=== PATIENT | male | born 1950 | race Caucasian/White ===

== ENCOUNTER 2019-10-19 13:45 | Outpatient (CLI) | payer MEDICARE, OTHER, SELFPAY ==
[2019-10-19 14:58] LABS: Basophils Percent Auto 0.4 % (0.2-1.2); Eosinophils Absolute Auto 0.2 K/mm3 (0-0.3); Eosinophils Percent Auto 1.7 % (0-4.4); Hematocrit 42.2 % (42.0-52.0); Hemoglobin 13.7 g/dL (14.0-18.0); Immature Granulocyte Absolute 0.08 K/mm3 (0.00-0.031); Immature Granulocyte Percent A 0.9 % (0-0.5); Lymphocytes Absolute Auto 1.03 K/mm3 (0.9-3.2); Lymphocytes Percent Auto 11.4 % (18.3-44.2); Mean Corpuscular HGB Conc 32.5 g/dl (32-36); Mean Corpuscular Hemoglobin 32.5 pg (26-34); Mean Corpuscular Volume 100.2 fl (80-100); Mean Platelet Volume 8.9 fl (7.4-10.4); Monocytes Absolute Auto 0.8 K/mm3 (0.1-0.6); Monocytes Percent Auto 8.9 % (2.6-8.5); Neutrophils Absolute Auto 6.9 K/mm3 (1.3-6.7); Neutrophils Percent Auto 76.7 % (45.5-73.1); Platelet Count Result 271 k/mm3 (150-375); Red Blood Count 4.21 M/mm3 (4.6-6.20); Red Cell Distribution Width 14.1 % (11.5-14.5)
[2019-10-19 15:10] LABS: Albumin Level 4.1 g/dL (3.5-5.1); Estimated Glomerular Filt Rate > 60; Glucose 105 mg/dL (75-110)
[2019-10-19 15:41] LABS: Urine Cotinine NEGATIVE
[2019-10-19 16:09] LABS: Hemoglobin A1C 4.7 % (<5.7)
== END 2019-10-19 13:46 | disposition home or self-care (01) ==
LOC: ANHSURGERY 13:50
PROVIDERS: PCP Family Medicine; Visit Provider Orthopaedic Surgery
DX: Z01.818 Encounter for other preprocedural examination (principal); M17.11 Unilateral primary osteoarthritis, right knee
CPT/HCPCS: 36415; 80307; 82040; 82565; 82947; 83036; 85025; 87081

== ENCOUNTER 2019-12-16 08:50 | Outpatient (CLI) | payer MEDICARE, OTHER, SELFPAY ==
[2019-12-16 09:20] LABS: Basophils Percent Auto 0.4 % (0.2-1.2); Eosinophils Absolute Auto 0.1 K/mm3 (0-0.3); Eosinophils Percent Auto 1.8 % (0-4.4); Hematocrit 37.9 % (42.0-52.0); Hemoglobin 12.1 g/dL (14.0-18.0); Immature Granulocyte Absolute 0.03 K/mm3 (0.00-0.031); Immature Granulocyte Percent A 0.5 % (0-0.5); Lymphocytes Absolute Auto 0.97 K/mm3 (0.9-3.2); Lymphocytes Percent Auto 17.8 % (18.3-44.2); Mean Corpuscular HGB Conc 31.9 g/dl (32-36); Mean Corpuscular Hemoglobin 31.1 pg (26-34); Mean Corpuscular Volume 97.4 fl (80-100); Mean Platelet Volume 9.1 fl (7.4-10.4); Monocytes Absolute Auto 0.7 K/mm3 (0.1-0.6); Monocytes Percent Auto 12.1 % (2.6-8.5); Neutrophils Absolute Auto 3.7 K/mm3 (1.3-6.7); Neutrophils Percent Auto 67.4 % (45.5-73.1); Platelet Count Result 241 k/mm3 (150-375); Red Blood Count 3.89 M/mm3 (4.6-6.20); Red Cell Distribution Width 15.5 % (11.5-14.5); White Blood Count 5.5 K/mm3 (4.5-10.0)
[2019-12-16 09:31] LABS: Hemoglobin A1C 4.7 % (<5.7); Urine Cotinine NEGATIVE
== END 2019-12-16 08:51 | disposition home or self-care (01) ==
LOC: ANHSURGERY 08:53
PROVIDERS: PCP Family Medicine; Visit Provider Orthopaedic Surgery
DX: M17.12 Unilateral primary osteoarthritis, left knee (principal)
CPT/HCPCS: 36415; 80307; 82040; 83036; 85025; 86850; 86900; 86901; 87081

== ENCOUNTER 2019-12-27 00:07 | Day surgery (SDC) | payer MEDICARE, OTHER, SELFPAY ==
[2019-12-08 13:03] VITALS: BMI 27.1
--- NOTE | 2019-12-08 13:29 | PC.NURSE ---
PT STATES NO CHANGE IN HEALTH HISTORY
[2019-12-27] VITALS (12 sets, daily range): BP systolic 126–160; BP diastolic 67–86; PULSE 73–99; RESP 13–18; TEMP 36.3–36.8; O2SAT 94–100; BMI 27.1; BMI 28.1
--- NOTE | ~2019-12-27 | XR_ITS ---
EXAMINATION: XR knee LT 2V DATE: 12/27/2019 09:47 INDICATION: Postoperative evaluation following left knee arthroplasty. TECHNIQUE: Anteroposterior and lateral views of the left knee were obtained. COMPARISON: None. FINDINGS: Left total knee arthroplasty with patellar resurfacing appears well seated and in near anatomic align ment. No fractures identified. Expected postoperative subcutaneous and intra-articular gas. IMPRESSION: 1. Left total knee arthroplasty, negative for postoperative purposes. Reviewed, dictated and finalized at location A. [employer]
--- NOTE | 2019-12-27 06:51 | WPDANESEPPF ---
Anes - Initial Pre Proc Eval Procedure: Operation Date: 12/27/19 07:30 Proposed Procedures p Left Total Knee Arthroplasty - Wayne Linda MD Date/Time: 12/27/19 06:51 Surgeon: Wayne Linda MD Pre Op Diagnosis: OA Right Knee Patient Data Age: 69 Gender: M Height: 6 ft Weight: 90.75 kg Allergies Allergy/AdvReac Type Severity Reaction Status Date / Time No Known Allergies Allergy Verified 12/08/19 13:08 Home Medications Medication Instructions Recorded Confirmed Type ascorbic acid (vitamin C) [Vitamin 500 mg PO Q12H 10/19/19 12/08/19 History C] coenzyme Q10 [Co Q-10] 100 mg PO DAILY 10/19/19 12/08/19 History dorzolamide-timolol 1 drp OPHTHALMIC (EYE) BID 10/19/19 12/08/19 History folic acid 1 mg PO DAILY 10/19/19 12/08/19 History lutein 10 mg PO DAILY 10/19/19 12/08/19 History multivitamin 1 cap PO DAILY 10/19/19 12/08/19 History timolol maleate (PF) 1 drp OPHTHALMIC (EYE) DAILY 10/19/19 12/08/19 History sulfasalazine 1,500 mg PO BID 11/15/19 12/08/19 History oxycodone-acetaminophen 1 - 2 tablet PO Q4H PRN #40 tablet 11/16/19 12/08/19 Rx MDD 8 tablets celecoxib [Celebrex] 200 mg PO DAILY 12/08/19 12/08/19 History leflunomide 20 mg PO DAILY 12/08/19 12/08/19 History Patient hx anesthesia problems: none Family hx anesthesia problems: none PMFSH Past Medical History Medical History Aftercare following surgery (11/15/19) Glaucoma History of melanoma KWAKU (obstructive sleep apnea) Osteoarthritis of left knee Osteoarthritis of right knee Rheumatoid arthritis Rheumatoid arthritis of knee Surgical History Surgical History History of arthroscopy of both knees History of detached retina repair (~1979) History of finger joint replacement (~2011) History of melanoma excision (~2015) Presence of right artificial knee joint (11/15/19) Family History Family History Other Family history of ulcerative colitis Social History Social History Social History: 1-2 beers day Smoking status: Current some day smoker Tobacco type: pipe and cigars Alcohol intake: current Drinks per week: 10 Substance use: never Spiritual care concerns: No Agree to blood products: Yes Anes - Eval Final PreProcedure Day of Procedure 12/27/19 06:51 Patient weight: overweight Heart: regular rate and rhythm Lungs: clear to auscultation Airway: Mallampati scale class 1 Neurological: alert and oriented Last oral intake: >/= 8 hours ASA classification: II Emergent: no Anesthetic plan: proceed Anesthesia type and monitoring: general LMA and standard monitoring Informed Consent: The patient's anesthetic plan and its attendant risks and benefits were discussed with the patient/family/POA. Questions were solicited and answers provided to the satisfaction of the patient/family/POA.
--- NOTE | 2019-12-27 07:11 | WPDHPUPDATE1 ---
History and Physical Update Update Date/Time: 12/27/19 07:11 History and Physical has been reviewed, including an updated exam of the patient. There are NO changes in the patient's condition. Risks, benefits, and alternatives have been discussed and questions answered. Patient agrees to proceed with procedure.
[2019-12-27] MEDS: LACTATED RINGERS 1,000 ML 30 ML IV CONT ×2 (07:15→09:31)
--- NOTE | 2019-12-27 07:27 | WPDANESPNB ---
Anes - Peripheral Nerve Block Date/Time: 12/27/19 07:27 I have discussed with the patient/family/POA the placement of a peripheral nerve block for post-operative pain management, including associated risks, benefits, complications, and side effects. Alternative methods of post-operative analgesia were detailed. Questions were solicited and answers provided to the satisfaction of the patient/family/POA. Time-Out: A pre-procedural Time-Out was completed immediately before starting the procedure and confirmed: Patient Identification, Site, Procedure, Patient Position and the Availability of Requisite Equipment. Clinical Indications: Acute post-operative pain management requested by the operative surgeon. Nerve Block Insertion Note Anes-nerve block: adductor canal left Patient position: supine Skin prep: chlorhexidine Needle: 22 gauge, stimulating, insulated echogenic needle. Needle length: 80 mm Technique: ultrasound Injectate: bupivacaine 0.5% with epi 5 mcg/ml (30ml) and dexamethasone (mg) (4mg) Observations: tolerated well Complications: none Procedure start time:: 714 Procedure end time:: 720
[2019-12-27] MEDS: ceFAZolin 2 GM/D5W 50 ML 2 GM/50 ML BAG IVPB (07:28)
[2019-12-27] MEDS: GENTAMICIN BONE CEMENT REFOBACIN 1 EACH TOPICAL (08:33)
--- NOTE | 2019-12-27 09:48 | PM.PROC ---
Procedure Note - Detailed Date of procedure: 12/27/19 Pre-op diagnosis: OA Right Knee Post-op diagnosis: same Procedure performed: Total knee arthroplasty, right Implants: [employer] Triathlon size 5 press-fit femur, size 6 cemented low-profile tibia, 11mm posterior stabilized polyethylene insert, 35mm asymmetric metal backed patellar component. Anesthesia: GETA and regional (subsartorial nerve block) Surgeon: Wayne Linda MD Estimated blood loss (mL): 100 Drains: No Complications: None Condition: stable Disposition: PACU Findings: Extensive synovitis, consistent with rheumatoid arthritis. Similar observation to the contralateral knee. Partial synovectomy performed. Bone quality good. Standard bony resection. OPERATIVE DETAILS: The patient was given a nerve block preoperatively, and then brought to the operating room. A general anesthetic was administered. The leg was prepped and draped in the usual sterile fashion. The limb was elevated and the tourniquet inflated to 300 mmHg during initial exposure, and cementation. A longitudinal incision was created along the medial border of the patella and patellar tendon, and a minimally invasive optimized mid-vastus approach to the knee was performed. A large medial release was taken. The knee was then flexed. The osteophytes were carefully removed. The intramedullary guide was placed in the femoral canal. The distal femoral resection was then taken with the oscillating saw. The collateral ligaments were carefully protected. The tibia was carefully exposed. The jig was applied, and the proximal tibia was resected according to preoperative plan. The knee was balanced in extension. Appropriate releases were taken where needed. The anterior and posterior cruciate ligaments and meniscal remnants were removed. The patella was measured. Patellar resection was carried out with the oscillating saw. The lug holes drilled. The femur was sized and rotation assessed using a combination of gap balancing, posterior referencing, and the AP axis. The 4 in 1 cutting block was used to finish the femoral cuts after equal gaps were assured. The box cut was taken. The lug holes were drilled. The osteophytes were carefully removed from the back of the knee. The knee was copiously irrigated with antibiotic solution periodically throughout the procedure. The spacer block was used to confirm equal flexion and extension gaps. Slight needle release of the MCL was performed. The tibia was sized and broached. The bony surfaces were prepared for cementing with pulsatile lavage. The real tibial component was cemented into position followed by press fitting the femoral component. Excess cement was carefully removed. The patella component was press-fit. Patellar tracking was carefully assessed. No additional releases were required. The wound was closed with #1 Vycril suture, #2 Quill suture, 0-Quill suture, and 2-0 Quill suture followed by Steri-Strips. A sterile bulky dressing was applied. Meticulous hemostasis was maintained throughout the procedure. The [email or web address] device was used. There were no complications. The patient was extubated and brought to the recovery room in stable condition after the application of sterile dressing with Jovan bandage.
--- NOTE | 2019-12-27 10:03 | SUR.PHASEI ---
1003 - family updated and sent to floor
[2019-12-27] MEDS: HYDROMORPHONE HCL 1 MG/ML INJ 0.5 MG IV PUSH (10:19)
--- NOTE | 2019-12-27 11:16 | ADMGEN ---
This patient, Reuben Gillespie, was admitted to 3 [facility] Room 327-01 at 1045. Patient/family oriented to hospital policies and general routines including ID bracelet, bed and alarms, visiting hours, pain management, procedures, bathroom and other care routines, personal items, smoking policy, room service/diet, and visiting hours. Valuables list has been completed. Information on how to activate the Rapid Response Team has been discussed. Patient/Family are encouraged to report perceived risks to care and to ask questions if they do not understand what they are told or what they should do.
[2019-12-27] MEDS: DOCUSATE SODIUM 100 MG CAPSULE PO (17:37)
[2019-12-27] MEDS: ASCORBIC ACID 500 MG TABLET PO (17:38)
[2019-12-27] MEDS: FOLIC ACID 1 MG TABLET PO (17:38)
[2019-12-27] MEDS: MULTIVITAMINS THERAPEUTIC TAB (*BKC) 1 TABLET PO (17:38)
[2019-12-27] MEDS: SULFASALAZINE 500 MG TABLET 1500 MG PO (17:39)
[2019-12-27] MEDS: CELECOXIB 200 MG CAPSULE PO (17:39)
[2019-12-27] MEDS: DORZOLAMIDE/TIMOLOL OPHTH SOL 10 ML BOTTLE 1 DROP LEFT EYE (17:41)
[2019-12-27] MEDS: ACETAMINOPHEN 500 MG TABLET 1000 MG PO ×2 (17:47→23:24)
[2019-12-27] MEDS: FAMOTIDINE 20 MG TABLET PO (20:17)
[2019-12-28 02:00] VITALS: BP 120/60; PULSE 89; RESP 18; TEMP 36.7; O2SAT 97
[2019-12-28] MEDS: ACETAMINOPHEN 500 MG TABLET 1000 MG PO (05:27)
[2019-12-28 05:57] VITALS: BP 127/61; PULSE 89; RESP 18; TEMP 36.6; O2SAT 98
[2019-12-28 06:04] LABS: Basophils Percent Auto 0.1 % (0.2-1.2); Eosinophils Percent Auto 0.2 % (0-4.4); Hematocrit 30.2 % (42.0-52.0); Hemoglobin 9.7 g/dL (14.0-18.0); Immature Granulocyte Absolute 0.04 K/mm3 (0.00-0.031); Immature Granulocyte Percent A 0.5 % (0-0.5); Lymphocytes Absolute Auto 1.23 K/mm3 (0.9-3.2); Lymphocytes Percent Auto 14.4 % (18.3-44.2); Mean Corpuscular HGB Conc 32.1 g/dl (32-36); Mean Corpuscular Volume 93.5 fl (80-100); Monocytes Absolute Auto 1.1 K/mm3 (0.1-0.6); Monocytes Percent Auto 12.6 % (2.6-8.5); Neutrophils Absolute Auto 6.2 K/mm3 (1.3-6.7); Neutrophils Percent Auto 72.2 % (45.5-73.1); Platelet Count Result 214 k/mm3 (150-375); Red Blood Count 3.23 M/mm3 (4.6-6.20); Red Cell Distribution Width 15.1 % (11.5-14.5); White Blood Count 8.5 K/mm3 (4.5-10.0)
[2019-12-28 06:09] LABS: Blood Urea Nitrogen 16 mg/dL (9-20); Calcium 8.7 mg/dL (8.4-10.2); Carbon Dioxide 28 mmol/L (22-30); Chloride 104 mmol/L (98-107); Estimated CRCL calculation 77 ml/min; Estimated Glomerular Filt Rate > 60; Glucose 111 mg/dL (75-110); Potassium 4.2 mmol/L (3.4-5.0); Sodium 139 mmol/L (137-145)
--- NOTE | 2019-12-28 07:44 | WPDANESPN ---
Anes - Prog Note Post-Op Date/Time: 12/28/19 07:44 Cardiovascular status: normal Respiratory status: normal Airway patency: baseline Mental status: baseline Vital Signs: Last Vital Signs Temp 36.6 C 12/28/19 05:57 Pulse 89 12/28/19 05:57 Resp 18 12/28/19 05:57 BP 127/61 12/28/19 05:57 Pulse Ox 98 12/28/19 05:57 I/O: Intake & Output 12/27/19 12/27/19 12/28/19 15:59 23:59 07:59 Intake Total 490 620 770 Output Total 950 1300 Balance 490 330 -755 Laboratory Tests 12/28/19 05:32 12/28/19 05:32 12/28/19 12/28/19 05:32 05:32 WBC 8.5 RBC 3.23 L Hgb 9.7 L Hct 30.2 L MCV 93.5 MCH 30.0 MCHC 32.1 RDW 15.1 H Plt Count 214 MPV 9.0 Immature Gran % (Auto) 0.5 Neut % (Auto) 72.2 Lymph % (Auto) 14.4 L Whitman % (Auto) 12.6 H Eos % (Auto) 0.2 Baso % (Auto) 0.1 L Lymph # (Auto) 1.23 Whitman # (Auto) 1.1 H Eos # (Auto) 0.0 Baso # (Auto) 0.0 Abs Immat Gran (auto) 0.04 H Absolute Neuts (auto) 6.2 Absolute Nucleated RBC 0.0 Nucleated RBC % 0.0 Sodium 139 Potassium 4.2 Chloride 104 Carbon Dioxide 28 BUN 16 Creatinine 0.90 Estim Creat Clear Calc 77 Estimated GFR > 60 Glucose 111 H Calcium 8.7 Post-procedural complaints: none Patient Feedback: Patient satisfied with anesthetic care.
[2019-12-28] MEDS: ASCORBIC ACID 500 MG TABLET PO (08:55)
[2019-12-28] MEDS: FAMOTIDINE 20 MG TABLET PO (08:55)
[2019-12-28] MEDS: SULFASALAZINE 500 MG TABLET 1500 MG PO (08:55)
[2019-12-28] MEDS: FOLIC ACID 1 MG TABLET PO (08:56)
[2019-12-28] MEDS: MULTIVITAMINS THERAPEUTIC TAB (*BKC) 1 TABLET PO (08:56)
[2019-12-28] MEDS: DOCUSATE SODIUM 100 MG CAPSULE PO (08:56)
--- NOTE | 2019-12-28 16:30 | PM.DS ---
DS: Diagnosis Admitting Diagnosis Admitting Diagnosis: Unilateral primary osteoarthritis, left knee Discharge Diagnosis (1) Rheumatoid arthritis of knee: Code(s): M06.9 - Rheumatoid arthritis, unspecified Status: Acute DS: Summary Hospital Course Reason for hospitalization: Total knee arthroplasty. Hospital Course: Tolerated surgery well. Progressed appropriately with therapy. Status at Discharge Functional status at discharge: uses cane/walker Time Spent with Patient Time attestation: Total time spent providing and/or coordinating discharge services: Exam Const: General: no acute distress Resp: Effort & Inspection: normal respiratory effort Skin: Other: Wound healing well. Mepilex dressing intact. No hematoma or drainage. Neuro: Motor exam (neuro): 5/5 motor strength present throughout Sensory Exam: normal sensation Psych: Mental Status: mental status grossly normal Speech and movement: Normal speech and movement present DS: Data Data Completed and Pending Labs on day of discharge: Labs from last 24 hours 12/28/19 12/28/19 05:32 05:32 WBC 8.5 RBC 3.23 L Hgb 9.7 L Hct 30.2 L MCV 93.5 MCH 30.0 MCHC 32.1 RDW 15.1 H Plt Count 214 MPV 9.0 Immature Gran % (Auto) 0.5 Neut % (Auto) 72.2 Lymph % (Auto) 14.4 L Griggs % (Auto) 12.6 H Eos % (Auto) 0.2 Baso % (Auto) 0.1 L Lymph # (Auto) 1.23 Griggs # (Auto) 1.1 H Eos # (Auto) 0.0 Baso # (Auto) 0.0 Abs Immat Gran (auto) 0.04 H Absolute Neuts (auto) 6.2 Absolute Nucleated RBC 0.0 Nucleated RBC % 0.0 Sodium 139 Potassium 4.2 Chloride 104 Carbon Dioxide 28 BUN 16 Creatinine 0.90 Estim Creat Clear Calc 77 Estimated GFR > 60 Glucose 111 H Calcium 8.7 Discharge Plan Discharge Patient Disposition: Home, Self-Care Discharge Instructions: See instruction sheet. Patient Instructions: Pain Management (DC), Knee Replacement (DC) Stand Alone Forms: General Discharge Information Follow-up/Referrals: Wayne Linda MD [Physician] - Discharge Orders: Discharge Order (Routine); Ordered 12/28/19 Ordered By: Wayne Linda Discharge Medications: Continued celecoxib [Celebrex] 200 mg Capsule 200 mg PO BID RF: 0 leflunomide 20 mg Tablet 20 mg PO DAILY RF: 0 ascorbic acid (vitamin C) [Vitamin C] 500 mg Capsule, Extended Release 500 mg PO Q12H RF: 0 folic acid 1 mg Tablet 1 mg PO DAILY RF: 0 dorzolamide-timolol 22.3-6.8 mg/mL Drops 1 drp OPHTHALMIC (EYE) BID RF: 0 multivitamin Capsule 1 cap PO DAILY RF: 0 coenzyme Q10 [Co Q-10] 100 mg Capsule 100 mg PO DAILY RF: 0 timolol maleate (PF) 0.5 % Dropperette 1 drp OPHTHALMIC (EYE) DAILY RF: 0 lutein 10 mg Tablet 10 mg PO DAILY RF: 0 sulfasalazine 500 mg tablet,delayed release (DR/EC) 1,500 mg PO BID RF: 0 oxycodone-acetaminophen 5-325 mg tablet 1 - 2 tablet PO Q4H MDD 8 tablets PRN (Reason: pain) Qty: 40 RF: 0 Discharge Date/Time: 12/28/19 09:30 Quality VTE Prophylaxis VTE prophylaxis: mechanical ordered (BHARTI fernandes and Emily)
== END 2019-12-28 09:30 | disposition home or self-care (01) ==
LOC: ANHSURGERY 06:12 → ANH3MEDSUR 16:21
PROVIDERS: PCP Family Medicine; Visit Provider Orthopaedic Surgery
PROC: (CPT 27447; principal; 2019-12-27 07:30)
DX: M17.12 Unilateral primary osteoarthritis, left knee (principal); M06.862 Other specified rheumatoid arthritis, left knee; M65.862 Other synovitis and tenosynovitis, left lower leg; G89.18 Other acute postprocedural pain; G47.33 Obstructive sleep apnea (adult) (pediatric); H40.9 Unspecified glaucoma; Z72.0 Tobacco use; Z96.651 Presence of right artificial knee joint
CPT/HCPCS: 27447; 64447; 36415; 73560; 80048; 85025; 97110; 97116; 97161; 97165; A9270; C1713; C1776; J0131; J0171; J0330; J0690; J1100; J1170; J1885; J2250; J2270; J2405; J2704; J2795; J3010; J7120

== ENCOUNTER 2022-05-27 08:19 | Outpatient (CLI) | payer MEDICARE, OTHER, SELFPAY | END 2022-05-27 08:20 | disposition home or self-care (01) | PROVIDERS: PCP Family Medicine; Visit Provider Specialist | DX: L73.9 Follicular disorder, unspecified (principal) | CPT/HCPCS: 87070; 87147; 87186; 87205 ==

== ENCOUNTER 2024-05-17 09:01 | Outpatient (RCR) | payer MEDICARE, SELFPAY ==
--- NOTE | 2024-05-17 10:14 | OPREHPOC ---
Outpatient Therapy Plan of Care This is a Multidisciplinary Plan of Care that may contain components documented by all disciplines (PT, OT, and ST.) PT Problem 1 PT Problem #1 Knowledge Deficit PT Goal 1 Goal The patient will be independent in a home exercise program. Target Visit 2 PT Problem 2 PT Problem #2 Pain PT Goal 1 Goal The patient will report no greater than 2/10 low back pain with ADL performance. Target Visit 8 PT Problem 3 PT Problem #3 Impaired Range of Motion PT Goal 1 Goal The patient will improve lumbar AROM by 5 degrees in all planes to improve ROM for ADLs and golfing. Target Visit 8 PT Problem 4 PT Problem #4 Impaired Strength PT Goal 1 Goal The patient will demonstrate 4/5 strength in the lower abdominals, lumbar extensors, and hip abductors to support the spine and hip. Target Visit 8 PT Problem 5 PT Problem #5 Impaired Functional Mobil PT Goal 1 Goal The patient will demonstrate less than 10% self perceived disability per the Back Index. Target Visit 8
--- NOTE | 2024-05-17 10:14 | PTOPEVAL1 ---
Assessment and note entered by Chantelle Mauro, PT Evaluation Information Assessment Status Evaluation Diagnosis Lumbar Spondylosis Other ICD-10 Condition Codes ( M47.816 PT) Onset 04/26/24 Subjective Information Reuben Gillespie reports he thinks he pinched a nerve in his back. He reports pain started about 2 months ago when he bent over after mowing on a riding mower and his back locked up. He is having pain in the lower back to both buttock and back of the thigh. He also has RA causing general pain. He notes he has difficulty with playing golf and performing daily tasks. He had x-rays on his hips and lumbar spine that showed mild degenerative changes in his hips and lumbar spondylosis and spondylolithesis. Reported Pain Level Pain Score 0: Self Report Assessment PT Clinical Summary Reuben Gillespie presents with low back pain with referral to bilateral buttock and posterior thigh. Symptoms started about 2 months ago when he bent over and felt his back lock up. He is noting difficulty with daily tasks and playing golf due to the pain. He objectively demonstrates decreased lumbar AROM; painful lumbar extension AROM; decreased bilateral hamstring, quadriceps, and hip flexors flexibility; decreased hip strength R > L ; decreased core strength; positive special tests for right hip OA; and decreased functional abilities. He will benefit from skilled PT to address these limitations. Plan of Care Interventions Electrical Stimulation,Hot Pack/Cold Pack,Manual Therapy,Neuro Re-education,Patient/Caregiver Educati,Therapeutic Activities,Therapeutic Exercise PT Services Indicated Yes Treatment Frequency and 2 times a week for 8 visits Duration These treatments will address the objective and functional deficits as defined above. The patient will be advanced safely and appropriately in order for the patient to progress towards his/her prior level of function. Additional exercises will be introduced and as well as a comprehensive home exercise program upon discharge, if needed, ?to ensure carryover of functional gains achieved in the clinic. This treatment plan has been reviewed and agreement upon by the patient.
== END 2024-08-15 23:59 | disposition home or self-care (01) ==
LOC: CHSPT 09:01
DX: M47.816 Spondylosis without myelopathy or radiculopathy, lumbar region (principal)
CPT/HCPCS: 97014; 97110; 97140; 97161; G0283